=== PATIENT | male | born 1990 | race Two or more races ===

== ENCOUNTER 2022-08-31 20:07 | Emergency (ER) | payer OTHER ==
[~2022-08-31] VITALS: Ht 175.3 cm; Wt 106.6 kg
== END 2022-09-01 00:43 | disposition home or self-care (01) ==
LOC: ER 20:07
DX: R42 Dizziness and giddiness (principal)

== ENCOUNTER 2022-09-12 08:40 | Emergency (ER) | payer OTHER ==
[~2022-09-12] VITALS: Ht 175.3 cm; Wt 107.0 kg
== END 2022-09-12 12:20 | disposition home or self-care (01) ==
LOC: ER 08:40
DX: R53.83 Other fatigue (principal)